=== PATIENT | female | born 1985 | race Caucasian/White ===

== ENCOUNTER 2024-01-05 14:36 | Emergency (ER) | payer BC ==
[~2024-01-05] VITALS: Ht 152.4 cm; Wt 61.4 kg
[2024-01-05 15:06] LABS: BASOPHILS % (AUTO) 0.4 % (0.0-2.0); EOSINOPHILS % (AUTO) 0.5 % (1.0-6.0); HEMATOCRIT 32.5 % (36-46); HEMOGLOBIN 10.5 g/dL (12.0-16.0); LYMPHOCYTES # (AUTO) 2.3 K/uL (1.0-4.8); LYMPHOCYTES % (AUTO) 29.2 % (22.0-44.0); MEAN CORPUSCULAR HEMOGLOBIN 23.8 pg (26.0-34.0); MEAN CORPUSCULAR HGB CONC 32.3 G/dL (31.0-37.0); MEAN CORPUSCULAR VOLUME 74 fL (80-100); MONOCYTES # (AUTO) 0.4 K/uL (0.1-1.0); MONOCYTES % (AUTO) 5.3 % (2.0-9.0); NEUTROPHILS # (AUTO) 5.1 K/uL (1.8-7.7); NEUTROPHILS % (AUTO) 64.6 % (40.0-70.0); PLATELET COUNT (AUTO) 300 K/uL (150-450); RED BLOOD CELL COUNT(AUTO) 4.41 MIL/uL (4.00-5.20); RED CELL DISTRIBUTION WIDTH 16.4 % (11.5-14.5); WHITE BLOOD COUNT (AUTO) 7.8 K/uL (4.5-11.0)
[2024-01-05 15:17] LABS: CALCIUM, TOTAL 8.5 mg/dL (8.8-10.5); CREATININE 1.29 mg/dL (0.60-1.30); POTASSIUM 3.3 mmol/L (3.5-5.1)
[2024-01-05 15:22] LABS: ALBUMIN 3.4 g/dL (3.4-5.0); BILIRUBIN,TOTAL 0.4 mg/dL (0.1-1.0); TOTAL PROTEIN, SERUM 7.4 g/dL (6.4-8.2)
[2024-01-05 15:30] LABS: PLATELET MORPHOLOGY COMMENT LARGE PLTS PRESENT; RBC MORPHOLOGY COMMENT ABNORMAL RBC MORPH
[2024-01-05 15:31] VITALS: TEMP 99.2
[2024-01-05] MEDS: SODIUM CHLORIDE 0.9% 1,000 ML IV ONE (16:53)
[2024-01-05] MEDS: MECLIZINE HCL 25 MG TABLET PO ONE (16:53)
[2024-01-05] MEDS: ACETAMINOPHEN 500 MG TABLET PO ONE (16:54)
[2024-01-05] MEDS: ONDANSETRON HCL 4 MG/2 ML VIAL IVP ONE (16:54)
[2024-01-05 17:20] VITALS: BP 113/63; PULSE 85; RESP 19
[2024-01-05] MEDS ORDERED: MECL-134 PO (17:31)
[2024-01-06 00:06] LABS: GLUCOMETER DEV NAME(LOC) ERT.5; GLUCOSE,POINT OF CARE 187 MG/DL (70-110)
== END 2024-01-05 18:09 | disposition home or self-care (01) ==
LOC: EMS 14:37
DX: R55 Syncope and collapse (principal); R42 Dizziness and giddiness; E11.9 Type 2 diabetes mellitus without complications; Z98.890 Other specified postprocedural states
CPT/HCPCS: 99284; 96374; 96361; 80053; 82962; 84703; 85025; 36415; 93005; J2405; J7030